=== PATIENT | female | born 1985 | race Caucasian/White ===

== ENCOUNTER 2017-02-22 21:32 | Emergency (ER) | payer OTHER ==
[~2017-02-22] VITALS: Ht 170.2 cm; Wt 99.8 kg
[~2017-02-22 21:32] MED LIST: BENTYL20 M1 PO; TRAMADOL50 MG PO; ZOFRAN4 M2 PO
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
[2017-02-22 23:49] VITALS: BP 136/72
== END 2017-02-22 23:49 ==
LOC: ERH 21:32
DX: R10.9 Unspecified abdominal pain (principal); O26.92 Pregnancy related conditions, unspecified, second trimester; V49.50XA Passenger injured in collision with unspecified motor vehicles in traffic accident, initial encounter; Y92.410 Unspecified street and highway as the place of occurrence of the external cause